=== PATIENT | male | born 1985 | race African-American/Black ===

== ENCOUNTER 2016-08-22 13:57 | Emergency (ER) | payer OTHER, MEDICAID ==
[~2016-08-22] VITALS: Ht 170.2 cm; Wt 77.0 kg
[2016-08-22 14:01] VITALS: BP 132/73; PULSE 76; RESP 16; TEMP 98.3; O2SAT 98
--- NOTE | 2016-08-22 14:20 | PD ---
HPI . thinks he has flu Chief Complaint: Cold / Flu Symptoms Time Seen by Provider: 14:20 Travel History International Travel<30 days: No Contact w/Intl Traveler<30days: No Traveled to known affect area: No History of Present Illness HPI 30-year-old male with no significant past medical history here with complaints of what he thinks is the flu for about 4 days. Patient says he's been having intermittent fevers with a MAXIMUM TEMPERATURE of 104. He decided to come to come to the emergency department for further evaluation. He admits to fever, chills, cough, congestion, and phlegm production that is brown. He has tried [id number] medications such as DayQuil without any relief. He denies any chest pain or shortness of breath. He has no other complaints. PFSH Past Medical History Medical History: Denies Significant Hx Diminished Hearing: No Tetanus Vaccination: < 5 Years Influenza Vaccination: Yes Past Surgical History Surgical History: No Previous Surgery Social History Alcohol Use: No Tobacco Use: No Substance Use: No Allergies-Medications (Allergen,Severity, Reaction): Coded Allergies: No Known Allergies (Unverified , 08/22/16) Reported Meds & Prescriptions Reported Meds & Active Scripts Active Tessalon Perles (Benzonatate) 100 Mg Cap 100 Mg PO TID PRN Prednisone 50 Mg Tab 50 Mg PO DAILY Augmentin (Amoxicillin-Clavulanate) 875-125 mg Tab 875 Mg PO BID not for use in CrCl <30 ml/min. Review of Systems General / Constitutional: Positive: Fever, Chills Eyes: No: Visual changes HENT: Positive: Congestion, No: Headaches Cardiovascular: No: Chest Pain or Discomfort Respiratory: Positive: Cough, No: Shortness of Breath Gastrointestinal: No: Abdominal Pain Genitourinary: No: Dysuria Musculoskeletal: No: Pain Skin: No Rash Neurologic: No: Weakness Psychiatric: No: Depression Endocrine: No: Polydipsia Hematologic/Lymphatic: No: Easy Bruising Physical Exam Narrative GENERAL: AAO x 3, no acute distress, Well-nourished, well-developed patient. SKIN: Warm and dry. No visible rashes or bruising. HEAD: Normocephalic and atraumatic. EYES: No scleral icterus. No injection or drainage. ENT: No nasal drainage noted. Mucous membranes pink. Airway patent. TM bulging on the left greater than the right. Mild posterior pharynx erythema without exudate. Moderate postnasal drip NECK: Supple, trachea midline. No JVD. No lymphadenopathy CARDIOVASCULAR: Regular rate and rhythm without murmurs, gallops, or rubs. RESPIRATORY: Breath sounds equal bilaterally. No accessory muscle use. No rhonchi or rales. GASTROINTESTINAL: Abdomen soft, non-tender, nondistended. EXTREMITIES: No cyanosis or edema. BACK: Nontender without obvious deformity. No CVA tenderness. PSYCH: AAO x 3, normal affect. Data Data Last Documented VS Vital Signs Date Time Temp Pulse Resp B/P Pulse Ox O2 Delivery O2 Flow Rate FiO2 08/22/16 14:01 98.3 76 16 132/73 98 Orders Influenzae A/B Antigen (08/22/16 14:23) MDM Medical Decision Making Medical Screen Exam Complete: Yes Emergency Medical Condition: Yes Medical Record Reviewed: Yes Differential Diagnosis sinusitis, influenza, bronchitis, less likely PNA Narrative Course 30-year-old male with no significant past medical history here with complaints of what he thinks is the flu for about 4 days. Patient says he's been having intermittent fevers with a MAXIMUM TEMPERATURE of 104. He decided to come to come to the emergency department for further evaluation. He admits to fever, chills, cough, congestion, and phlegm production that is brown. He has tried [id number] medications such as DayQuil without any relief. He denies any chest pain or shortness of breath. He has no other complaints. Patient seen and examined. With spiking fevers will check influenza swab. If negative will go ahead and treat for acute sinusitis and bronchitis. Lungs are clear*doubt pneumonia. Microbiology Date/Time Procedure Status Source Growth 08/22/16 14:45 Influenza Types A,B Antigen ([facility]) - Final Complete Nasal Washing NEGATIVE FOR FLU A AND B ANTIGEN.... I discussed results with patient as well as exam. Discussed treatment for sinusitis and bronchitis. He was in agreement. He thanked me for his care. Diagnosis Primary Impression: Acute sinusitis Qualified Code: J01.90 - Acute sinusitis, recurrence not specified, unspecified location Additional Impression: Acute bronchitis Qualified Code: J20.9 - Acute bronchitis, unspecified organism Patient Instructions: Acute Bronchitis (ED), General Instructions, Sinusitis ( ED) Additional Instructions: Please return to emergency department if your symptoms return or worsen. Follow up with your primary care provider. Take medications as prescribed. Use Tylenol or Motrin as needed for pain and fever. Med/Other Pt SpecificInfo: Prescription(s) given Scripts Benzonatate (Tessalon Perles)100 Mg [id number] Mg PO TID PRN (COUGH) #15 CAP Ref 0 Prov:Radha Henriquez MD 08/22/16 Prednisone 50 Mg Tab50 Mg PO DAILY #5 TAB Prov:Radha Henriquez MD 08/22/16 Amoxicillin-Clavulanate (Augmentin)875-125 mg [id number] Mg PO BID #20 TAB not for use in CrCl <30 ml/min. Prov:Radha Henriquez MD 08/22/16 Disposition: 01 DISCHARGE HOME Condition: Stable Lela Tyler Aug 22, 2016 14:20
[2016-08-22] MEDS ORDERED: AUGM875T PO (15:05)
[2016-08-22] MEDS ORDERED: PRED50 PO (15:05)
[2016-08-22] MEDS ORDERED: BENZ100 PO (15:05)
== END 2016-08-22 15:14 | disposition home or self-care (01) ==
LOC: PHEFT 13:57
DX: J01.90 Acute sinusitis, unspecified (principal); J20.9 Acute bronchitis, unspecified
CPT/HCPCS: 87804; 99283